=== PATIENT | female | born 1985 | race American Indian/Alaskan Native ===

== ENCOUNTER 2016-06-20 13:44 | Emergency (ER) | payer OTHER ==
[2016-06-20 14:30] VITALS: BP 123/73
--- NOTE | 2016-06-20 15:12 | Emergency Department Report ---
Entered by RAUL GARCÍA, acting as scribe for BERNADETTE SAUER NP. Chief Complaint: Neck Pain/Injury Stated Complaint: NECK PAIN W/SWELLING Time Seen by Provider: 06/20/16 14:16 - HPI History of Present Illness: 30 y/o female presents c/o swelling around the neck that started 3 days ago. Sx include sore throat. Pt notes no sick contacts or injury to the area. She believes swelling is due to her recently going back to work, which she has not done in 8 months. PT states she was told by a chiropractor that she had a dislocated atlas. 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 Due to findings the following was ordered: lab xr ED Disposition for MSE Condition: Stable This documentation as recorded by the scribeRAQUEL RYAN,accurately reflects the service I personally performed and the decisions made by ,BERNADETTE SAUER , BOARD CATCHER.
--- NOTE | 2016-06-20 16:21 | XRay Report ---
AP AND LATERAL CERVICAL SPINE: History: Pain and swelling. The vertebral bodies are well mineralized and normal in alignment and vertebral height with well preserved interspace distances. The visualized portions of the posterior elements are normal. IMPRESSION: Normal study.
--- NOTE | 2016-06-20 16:53 | Emergency Department Report ---
ED Neck Pain/Injury HPI - General Chief Complaint: Neck Pain/Injury Stated Complaint: NECK PAIN W/SWELLING Time Seen by Provider: 06/20/16 14:16 Source: patient Mode of arrival: Ambulatory Limitations: No Limitations - History of Present Illness Initial Comments: PT c/o neck pain x 3 days. PT States the pain started after she returned to work. PT states her neck has been having intermittent swelling x 1 year. MD Complaint: neck pain -: Gradual, days(s) (3 days this episode ), year(s) (1 year of intermittent neck pain ) Severity: constant, similar to prior neck cathryn Severity scale (0 -10): 10 Quality: sharp (stinging ), aching Consistency: constant Worsens With: movement of neck, swallowing (pt c/o sore throat this am ) Associated Symptoms: denies: fever, swollen glands, difficulty swallowing, vomiting Treatments Prior to Arrival: Acetaminophen - Related Data Previous Rx's Medication Instructions Recorded Last Taken Type Ibuprofen [Motrin] 600 mg PO Q8H PRN #15 tablet 06/20/16 Unknown Rx methOCARBAMOL [Robaxin TAB] 500 mg PO Q6H PRN #15 tablet 06/20/16 Unknown Rx methylPREDNISolone [Medrol] 4 mg PO DAILY #1 tab.ds.pk 06/20/16 Unknown Rx Allergies Allergy/AdvReac Type Severity Reaction Status Date / Time No Known Allergies Allergy Verified 11/24/14 23:11 ED Review of Systems ROS: Stated complaint: NECK PAIN W/SWELLING Other details as noted in HPI Comment: All other systems reviewed and negative Constitutional: malaise. denies: fever ENT: throat pain. denies: ear pain Gastrointestinal: denies: abdominal pain, nausea, vomiting Genitourinary: denies: abnormal menses Musculoskeletal: as per HPI. denies: back pain ED Past Medical Hx - Past Medical History Previous Medical History?: Yes Hx Hypertension: No Hx Diabetes: No Hx Deep Vein Thrombosis: No Hx Renal Disease: No Hx Sickle Cell Disease: No Hx Seizures: No Hx Asthma: No Hx HIV: No Additional medical history: panic attack, Cervical radial apathy - Surgical History Past Surgical History?: Yes Additional Surgical History: D & C x 3 - Social History Smoking Status: Never Smoker Substance Use Type: None - Medications Home Medications: Home Medications Medication Instructions Recorded Confirmed Last Taken Type Ibuprofen [Motrin] 600 mg PO Q8H PRN #15 tablet 06/20/16 Unknown Rx methOCARBAMOL [Robaxin TAB] 500 mg PO Q6H PRN #15 tablet 06/20/16 Unknown Rx methylPREDNISolone [Medrol] 4 mg PO DAILY #1 tab.ds.pk 06/20/16 Unknown Rx ED Physical Exam - General Limitations: No Limitations General appearance: alert, in no apparent distress - Head Head exam: Present: atraumatic, normocephalic, normal inspection - Eye Eye exam: Present: normal appearance, PERRL. Absent: conjunctival injection - ENT ENT exam: Present: mucous membranes moist, TM's normal bilaterally, normal external ear exam - Expanded ENT Exam Expanded Throat exam: Positive: tonsillar exudate (questionable possible food substance ) . Negative: tonsillar erythema, tonsillomegaly, R peritonsillar mass, L peritonsillar mass - Neck Neck exam: Present: normal inspection, tenderness, full ROM, other (post c- spine tenderness, divya paraspinal muscle tenderness ). Absent: meningismus, lymphadenopathy - Respiratory Respiratory exam: Present: normal lung sounds bilaterally. Absent: respiratory distress - Cardiovascular Cardiovascular Exam: Present: regular rate, normal rhythm, normal heart sounds - Extremities Exam Extremities exam: Present: normal inspection, full ROM - Back Exam Back exam: Present: normal inspection, full ROM. Absent: tenderness, CVA tenderness (R), CVA tenderness (L) - Neurological Exam Neurological exam: Present: alert, oriented X3 - Psychiatric Psychiatric exam: Present: normal affect, normal mood - Skin Skin exam: Present: warm, dry, intact, normal color ED Course Vital Signs 06/20/16 14:26 Temperature 98.3 F Pulse Rate 84 Respiratory 20 Rate Blood Pressure 123/73 O2 Sat by Pulse 98 Oximetry - Reevaluation(s) Reevaluation #1: 06/20/16 17:07 PT aware of lab and XR results and plan of care. PT has no questions at this time. - Pulse Oximetry Interpretation Digit-Finger Initial Pulse Oximetry Readin Actions Taken: none ED Medical Decision Making - Differential Diagnosis strain, dislocation, strep pharyngitis Critical Care Time: No Critical care attestation.: If time is entered above; I have spent that time in minutes in the direct care of this critically ill patient, excluding procedure time. ED Disposition Clinical Impression: Cervical strain, acute Qualifiers: Encounter type: initial encounter Qualified Code(s): S16.1XXA - Strain of muscle, fascia and tendon at neck level, initial encounter Pharyngitis Qualifiers: Pharyngitis/tonsillitis etiology: unspecified etiology Qualified Code(s): J02.9 - Acute pharyngitis, unspecified Disposition: DISCHARGED TO HOME OR SELFCARE Is pt being admited?: No Does the pt Need Aspirin: No Condition: Stable Instructions: Cervical Spine Strain (ED), Muscle Strain (ED), Pharyngitis (ED) Additional Instructions: No driving or ETOH after Robaxin Prescriptions: Ibuprofen [Motrin] 600 mg PO Q8H PRN #15 tablet PRN Reason: Pain methOCARBAMOL [Robaxin TAB] 500 mg PO Q6H PRN #15 tablet PRN Reason: Muscle Spasm methylPREDNISolone [Medrol] 4 mg PO DAILY #1 tab.ds.pk Referrals: PRIMARY MD YENIFER [Primary Care Provider] - 3-5 Days DOROTHEA MINER MD [Referring] - 3-5 Days [facility] [Outside] - 3-5 Days Forms: Work/School Release Form(ED) Time of Disposition: 16:59
== END 2016-06-20 17:15 | disposition home or self-care (01) ==
LOC: ED 13:44
DX: S16.1XXA Strain of muscle, fascia and tendon at neck level, initial encounter (principal); J02.9 Acute pharyngitis, unspecified; F41.0 Panic disorder [episodic paroxysmal anxiety]
CPT/HCPCS: 72040; 87116; 87430

== ENCOUNTER 2017-08-29 15:59 | Outpatient (CLI) | payer MEDICAID ==
[2017-08-29] MEDS ORDERED: LACTATED RINGERS 500 ML IV ONE (17:13)
[2017-08-29 17:33] VITALS: BP 112/68
[2017-08-29 17:41] LABS: Bacteria,Urine 4+ /HPF (Negative); Bilirubin,Urine NEG (Negative); Blood,Urine NEG (Negative); Color,Urine Yellow (Yellow); Mucus,Urine FEW /HPF; Protein,Urine <15 mg/dL mg/dL (Negative); Urobilinogen,Urine < 2.0 mg/dL (<2.0)
== END 2017-08-29 19:17 | disposition home or self-care (01) ==
LOC: EDSTATUS 16:31 → TRG 16:52
PROVIDERS: ATTEND Obstetrics & Gynecology
DX: O26.892 Other specified pregnancy related conditions, second trimester (principal); R10.2 Pelvic and perineal pain; Z3A.24 24 weeks gestation of pregnancy
CPT/HCPCS: 59025; 81001; 96360; J7120

== ENCOUNTER 2017-09-15 18:09 | Outpatient (CLI) | payer MEDICAID ==
[2017-09-15 19:31] VITALS: BP 120/60
[2017-09-15] MEDS ORDERED: LACTATED RINGERS 1,000 ML IV ONE (19:36)
[2017-09-15 21:22] LABS: Bacteria,Urine 4+ /HPF (Negative); Bilirubin,Urine NEG (Negative); Blood,Urine SM (Negative); Color,Urine Yellow (Yellow); Hyaline Casts,Urine 9 /LPF; Mucus,Urine FEW /HPF; Protein,Urine <15 mg/dL mg/dL (Negative); Sperm,Urine FEW /HPF (NP); Urobilinogen,Urine < 2.0 mg/dL (<2.0)
== END 2017-09-15 21:34 | disposition home or self-care (01) ==
LOC: TRG 18:09
PROVIDERS: ATTEND Obstetrics & Gynecology
DX: O47.02 False labor before 37 completed weeks of gestation, second trimester (principal); Z3A.26 26 weeks gestation of pregnancy
CPT/HCPCS: 59025; 81001

== ENCOUNTER 2019-05-20 21:27 | Emergency (ER) | payer MEDICAID ==
[2019-05-20 21:58] VITALS: BP 135/79
--- NOTE | 2019-05-20 23:37 | Emergency Department Report ---
- General Chief Complaint: Dyspnea/Respdistress Stated Complaint: SOB/SINUS INFECTION SX X 7 DAYS Time Seen by Provider: 05/20/19 22:44 Source: patient Mode of arrival: Ambulatory Limitations: No Limitations - History of Present Illness MD Complaint: cough, sore throat, rhinorrhea, nasal congestion -: Gradual Severity: mild, moderate Quality: dull Associated Symptoms: rhinorrhea, nasal congestion, cough. denies: shortness of breath, abdominal pain, nausea, confusion, right sweats, weight loss - Related Data Previous Rx's Medication Instructions Recorded Last Taken Type Ibuprofen [Motrin] 600 mg PO Q8H PRN #15 tablet 06/20/16 Unknown Rx methOCARBAMOL [Robaxin TAB] 500 mg PO Q6H PRN #15 tablet 06/20/16 Unknown Rx methylPREDNISolone [Medrol] 4 mg PO DAILY #1 tab.ds.pk 06/20/16 Unknown Rx Albuterol INH(or & Nicu Only) 2 puff IH QID PRN #1 inhalation 05/20/19 Unknown Rx [ProAir HFA Inhaler] Sulfamethoxazole/Trimethoprim 1 each PO BID #30 tablet 05/20/19 Unknown Rx [Bactrim DS TAB] guaiFENesin/CODEINE [Robitussin AC] 5 ml PO Q6H PRN #120 ml 05/20/19 Unknown Rx predniSONE [Deltasone] 20 mg PO BID #14 tab 05/20/19 Unknown Rx Allergies Allergy/AdvReac Type Severity Reaction Status Date / Time No Known Allergies Allergy Verified 11/24/14 23:11 ED Review of Systems ROS: Stated complaint: SOB/SINUS INFECTION SX X 7 DAYS Other details as noted in HPI ED Past Medical Hx - Past Medical History Hx Hypertension: No Hx Diabetes: No Hx Deep Vein Thrombosis: No Hx Renal Disease: No Hx Sickle Cell Disease: No Hx Seizures: No Hx Asthma: Yes Hx HIV: No Additional medical history: panic attack, Cervical radial apathy, high cholesterol, fibromylagia - Surgical History Hx Cholecystectomy: Yes Additional Surgical History: D & C x 3 - Social History Smoking Status: Never Smoker Substance Use Type: None - Medications Home Medications: Home Medications Medication Instructions Recorded Confirmed Last Taken Type Ibuprofen [Motrin] 600 mg PO Q8H PRN #15 tablet 06/20/16 Unknown Rx methOCARBAMOL [Robaxin TAB] 500 mg PO Q6H PRN #15 tablet 06/20/16 Unknown Rx methylPREDNISolone [Medrol] 4 mg PO DAILY #1 tab.ds.pk 06/20/16 Unknown Rx Albuterol INH(or & Nicu Only) 2 puff IH QID PRN #1 inhalation 05/20/19 Unknown Rx [ProAir HFA Inhaler] Sulfamethoxazole/Trimethoprim 1 each PO BID #30 tablet 05/20/19 Unknown Rx [Bactrim DS TAB] guaiFENesin/CODEINE [Robitussin AC] 5 ml PO Q6H PRN #120 ml 05/20/19 Unknown Rx predniSONE [Deltasone] 20 mg PO BID #14 tab 05/20/19 Unknown Rx ED Physical Exam - General Limitations: No Limitations ED Course Vital Signs 05/20/19 21:34 Temperature 98.9 F Pulse Rate 100 H Respiratory 20 Rate Blood Pressure 135/79 O2 Sat by Pulse 99 Oximetry Critical care attestation.: If time is entered above; I have spent that time in minutes in the direct care of this critically ill patient, excluding procedure time. ED Disposition Clinical Impression: Bronchitis Disposition: DC-01 TO HOME OR SELFCARE Is pt being admited?: No Does the pt Need Aspirin: No Condition: Stable Instructions: Chronic Bronchitis (ED), Acute Bronchitis (ED) Prescriptions: Sulfamethoxazole/Trimethoprim [Bactrim DS TAB] 1 each PO BID #30 tablet predniSONE [Deltasone] 20 mg PO BID #14 tab Albuterol INH(or & Nicu Only) [ProAir HFA Inhaler] 2 puff IH QID PRN #1 inhalation PRN Reason: Shortness Of Breath guaiFENesin/CODEINE [Robitussin AC] 5 ml PO Q6H PRN #120 ml PRN Reason: Cough Referrals: PRIMARY CARE, [Primary Care Provider] - 3-5 Days [facility] [Provider Group] - 3-5 Days
== END 2019-05-20 23:50 | disposition home or self-care (01) ==
LOC: ED 21:27
DX: J40 Bronchitis, not specified as acute or chronic (principal); J45.909 Unspecified asthma, uncomplicated; E78.00 Pure hypercholesterolemia, unspecified; Z90.49 Acquired absence of other specified parts of digestive tract; Z79.899 Other long term (current) drug therapy
CPT/HCPCS: 99282

== ENCOUNTER 2019-07-09 19:25 | Emergency (ER) | payer MEDICAID ==
[2019-07-09 19:41] VITALS: BP 117/67
--- NOTE | 2019-07-09 21:46 | Emergency Department Report ---
ED ENT HPI - General Chief complaint: Dental/Oral Stated complaint: SWELLING TONSILS AND ITCHING/CHEST PAIN Time Seen by Provider: 07/09/19 20:44 Source: patient Mode of arrival: Ambulatory Limitations: No Limitations - History of Present Illness MD complaint: sore throat -: Gradual, days(s) (Past few days) Severity: mild, moderate Consistency: constant Improves with: none Worsens with: swallowing, eating Associated Symptoms: pain with swallowing, sore throat. denies: gum swelling, tinnitus, discharge from ear, rhinorrhea - Related Data Previous Rx's Medication Instructions Recorded Last Taken Type Ibuprofen [Motrin] 600 mg PO Q8H PRN #15 tablet 06/20/16 Unknown Rx methOCARBAMOL [Robaxin TAB] 500 mg PO Q6H PRN #15 tablet 06/20/16 Unknown Rx methylPREDNISolone [Medrol] 4 mg PO DAILY #1 tab.ds.pk 06/20/16 Unknown Rx Albuterol INH(or & Nicu Only) 2 puff IH QID PRN #1 inhalation 05/20/19 Unknown Rx [ProAir HFA Inhaler] Sulfamethoxazole/Trimethoprim 1 each PO BID #30 tablet 05/20/19 Unknown Rx [Bactrim DS TAB] guaiFENesin/CODEINE [Robitussin AC] 5 ml PO Q6H PRN #120 ml 05/20/19 Unknown Rx predniSONE [Deltasone] 20 mg PO BID #14 tab 05/20/19 Unknown Rx Clindamycin [Clindamycin CAP] 300 mg PO Q8H #21 cap 07/09/19 Unknown Rx Allergies Allergy/AdvReac Type Severity Reaction Status Date / Time amoxicillin [From Augmentin] Allergy Swelling Verified 07/09/19 19:42 clavulanic acid Allergy Swelling Verified 07/09/19 19:42 [From Augmentin] ED Dental HPI - General Chief complaint: Dental/Oral Stated complaint: SWELLING TONSILS AND ITCHING/CHEST PAIN Time Seen by Provider: 07/09/19 20:44 Source: patient Mode of arrival: Ambulatory Limitations: No Limitations - Related Data Previous Rx's Medication Instructions Recorded Last Taken Type Ibuprofen [Motrin] 600 mg PO Q8H PRN #15 tablet 06/20/16 Unknown Rx methOCARBAMOL [Robaxin TAB] 500 mg PO Q6H PRN #15 tablet 06/20/16 Unknown Rx methylPREDNISolone [Medrol] 4 mg PO DAILY #1 tab.ds.pk 06/20/16 Unknown Rx Albuterol INH(or & Nicu Only) 2 puff IH QID PRN #1 inhalation 05/20/19 Unknown Rx [ProAir HFA Inhaler] Sulfamethoxazole/Trimethoprim 1 each PO BID #30 tablet 05/20/19 Unknown Rx [Bactrim DS TAB] guaiFENesin/CODEINE [Robitussin AC] 5 ml PO Q6H PRN #120 ml 05/20/19 Unknown Rx predniSONE [Deltasone] 20 mg PO BID #14 tab 05/20/19 Unknown Rx Clindamycin [Clindamycin CAP] 300 mg PO Q8H #21 cap 07/09/19 Unknown Rx Allergies Allergy/AdvReac Type Severity Reaction Status Date / Time amoxicillin [From Augmentin] Allergy Swelling Verified 07/09/19 19:42 clavulanic acid Allergy Swelling Verified 07/09/19 19:42 [From Augmentin] ED Review of Systems ROS: Stated complaint: SWELLING TONSILS AND ITCHING/CHEST PAIN Other details as noted in HPI Comment: All other systems reviewed and negative ED Past Medical Hx - Past Medical History Hx Hypertension: No Hx Diabetes: No Hx Deep Vein Thrombosis: No Hx Renal Disease: No Hx Sickle Cell Disease: No Hx Seizures: No Hx Asthma: Yes Hx HIV: No Additional medical history: panic attack, Cervical radial apathy, high cholesterol, fibromylagia - Surgical History Hx Cholecystectomy: Yes Additional Surgical History: D & C x 3 - Social History Smoking Status: Never Smoker Substance Use Type: None - Medications Home Medications: Home Medications Medication Instructions Recorded Confirmed Last Taken Type Ibuprofen [Motrin] 600 mg PO Q8H PRN #15 tablet 06/20/16 Unknown Rx methOCARBAMOL [Robaxin TAB] 500 mg PO Q6H PRN #15 tablet 06/20/16 Unknown Rx methylPREDNISolone [Medrol] 4 mg PO DAILY #1 tab.ds.pk 06/20/16 Unknown Rx Albuterol INH(or & Nicu Only) 2 puff IH QID PRN #1 inhalation 05/20/19 Unknown Rx [ProAir HFA Inhaler] Sulfamethoxazole/Trimethoprim 1 each PO BID #30 tablet 05/20/19 Unknown Rx [Bactrim DS TAB] guaiFENesin/CODEINE [Robitussin AC] 5 ml PO Q6H PRN #120 ml 05/20/19 Unknown Rx predniSONE [Deltasone] 20 mg PO BID #14 tab 05/20/19 Unknown Rx Clindamycin [Clindamycin CAP] 300 mg PO Q8H #21 cap 07/09/19 Unknown Rx ED Physical Exam - General Limitations: No Limitations General appearance: alert, in no apparent distress - Head Head exam: Present: atraumatic, normocephalic - Eye Eye exam: Present: normal appearance, PERRL, EOMI Pupils: Present: normal accommodation - ENT ENT exam: Present: mucous membranes moist - Neck Neck exam: Present: normal inspection - Respiratory Respiratory exam: Present: normal lung sounds bilaterally. Absent: respiratory distress - Cardiovascular Cardiovascular Exam: Present: regular rate, normal rhythm. Absent: systolic murmur, diastolic murmur, rubs, gallop - GI/Abdominal GI/Abdominal exam: Present: soft, normal bowel sounds - Extremities Exam Extremities exam: Present: normal inspection - Back Exam Back exam: Present: normal inspection - Neurological Exam Neurological exam: Present: alert, oriented X3 - Psychiatric Psychiatric exam: Present: normal affect, normal mood - Skin Skin exam: Present: warm, dry, intact, normal color. Absent: rash ED Course Vital Signs 07/09/19 19:38 Temperature 97.8 F Pulse Rate 58 L Respiratory 18 Rate Blood Pressure 117/67 O2 Sat by Pulse 100 Oximetry Critical care attestation.: If time is entered above; I have spent that time in minutes in the direct care of this critically ill patient, excluding procedure time. ED Disposition Disposition: DC- TO HOME OR SELFCARE Condition: Stable Instructions: Pharyngitis (ED) Prescriptions: Clindamycin [Clindamycin CAP] 300 mg PO Q8H #21 cap Referrals: PRIMARY CARE, [Primary Care Provider] - 3-5 Days [facility] [Provider Group] - 3-5 Days
== END 2019-07-09 21:27 | disposition home or self-care (01) ==
LOC: ED 19:25
DX: R07.9 Chest pain, unspecified (principal); J03.90 Acute tonsillitis, unspecified; L29.9 Pruritus, unspecified; J45.909 Unspecified asthma, uncomplicated; E78.00 Pure hypercholesterolemia, unspecified; Z90.49 Acquired absence of other specified parts of digestive tract; Z98.890 Other specified postprocedural states; Z88.8 Allergy status to other drugs, medicaments and biological substances; Z79.899 Other long term (current) drug therapy
CPT/HCPCS: 99281

== ENCOUNTER 2020-04-01 21:06 | Emergency (ER) | payer MEDICAID ==
[2020-04-01] MEDS ORDERED: ASPIRIN 325 MG TAB PO ONE (22:58)
[2020-04-01 23:16] LABS: Basophils % (Auto) 0.4 % (0.0-1.8); Eosinophils # (Auto) 0.1 K/mm3 (0.0-0.4); Eosinophils % (Auto) 0.7 % (0.0-4.3); Hematocrit 38.8 % (30.3-42.9); Hemoglobin 13.6 gm/dl (10.1-14.3); Lymphocytes # (Auto) 3.4 K/mm3 (1.2-5.4); Mean Corpuscular HGB Conc 35 % (30-34); Mean Corpuscular Volume 90 fl (79-97); Monocytes # (Auto) 0.7 K/mm3 (0.0-0.8); Monocytes % (Auto) 7.9 % (0.0-7.3); Platelet Count 261 K/mm3 (140-440); Red Blood Count 4.32 M/mm3 (3.65-5.03); Red Cell Distribution Width 12.8 % (13.2-15.2)
[2020-04-01 23:38] LABS: BUN/Creatinine Ratio 14; Blood Urea Nitrogen 11 mg/dL (7-17); Calcium 9.5 mg/dL (8.4-10.2); Hemolysis Index 9
--- NOTE | 2020-04-01 23:55 | XRay Report ---
CHEST 1 VIEW 04/01/2020 10:41 PM INDICATION / CLINICAL INFORMATION: Chest Pain. COMPARISON: 11/02/2015 FINDINGS: SUPPORT DEVICES: None. HEART / MEDIASTINUM: No significant abnormality. LUNGS / PLEURA: No significant pulmonary or pleural abnormality. No pneumothorax. ADDITIONAL FINDINGS: No significant additional findings. IMPRESSION: 1. No acute findings. Signer Name: Kareem Kendall MD Signed: 04/01/2020 11:51 PM Workstation Name: [id number]
--- NOTE | 2020-04-02 00:04 | Emergency Department Report ---
ED Chest Pain HPI - General Chief Complaint: Chest Pain Stated Complaint: LEFT SIDE RIB/CHEST PAIN PUI?: No Time Seen by Provider: 04/01/20 23:32 Source: patient Mode of arrival: Ambulatory Limitations: No Limitations - History of Present Illness Initial Comments: Patient is a 34-year-old female that presents emergency room with complaints of chest pain x3 days. Patient states the chest pain is on both sides of her sternum and is radiating down to the bottom of her left breast. Patient states that the pain is ongoing. Patient states the pain is the same for the last 3 days. Patient states the pain is a 10 out of 10. Patient states the pain is worse with movement and palpation. Patient states the pain is better with rest. Patient states that the pain is also worse with deep breath. Patient denies shortness of breath. Patient denies fever and chills. Patient denies cough. Patient denies trauma. Patient denies fall. Patient denies new work-up. Patient denies recent travel. Patient denies recent international travel. Patient denies exposure to the novel coronavirus. Patient denies sick contacts. Patient denies fever and chills. Patient denies cough. Patient denies diarrhea. Patient denies coming in contact with anybody with symptoms of the novel coronavirus. MD Complaint: chest pain - Related Data Previous Rx's Medication Instructions Recorded Last Taken Type Ibuprofen [Motrin] 600 mg PO Q8H PRN #15 tablet 06/20/16 Unknown Rx methOCARBAMOL [Robaxin TAB] 500 mg PO Q6H PRN #15 tablet 06/20/16 Unknown Rx methylPREDNISolone [Medrol] 4 mg PO DAILY #1 tab.ds.pk 06/20/16 Unknown Rx Albuterol Mdi (or & Nicu Only) 2 puff IH QID PRN #1 inhalation 05/20/19 Unknown Rx [ProAir HFA Inhaler] Sulfamethoxazole/Trimethoprim 1 each PO BID #30 tablet 05/20/19 Unknown Rx [Bactrim DS TAB] guaiFENesin/CODEINE [Robitussin AC] 5 ml PO Q6H PRN #120 ml 05/20/19 Unknown Rx predniSONE [Deltasone] 20 mg PO BID #14 tab 05/20/19 Unknown Rx Clindamycin [Clindamycin CAP] 300 mg PO Q8H #21 cap 07/09/19 Unknown Rx methylPREDNISolone [Medrol 4MG 4 mg PO DAILY 6 Days #1 tab.ds.pk 04/02/20 Unknown Rx DOSEPAK (21 tabs)] Allergies Allergy/AdvReac Type Severity Reaction Status Date / Time amoxicillin [From Augmentin] Allergy Swelling Verified 07/09/19 19:42 clavulanic acid Allergy Swelling Verified 07/09/19 19:42 [From Augmentin] Heart Score - HEART Score History: Slightly suspicious EKG: Normal Age: < 45 Risk factors: No known risk factors Troponin: < normal limit HEART Score: 0 ED Review of Systems ROS: Stated complaint: LEFT SIDE RIB/CHEST PAIN Other details as noted in HPI Constitutional: denies: chills, fever Eyes: denies: eye pain, eye discharge, vision change ENT: denies: ear pain, throat pain Respiratory: denies: cough, shortness of breath, wheezing Cardiovascular: chest pain. denies: palpitations Endocrine: no symptoms reported Gastrointestinal: denies: abdominal pain, nausea, diarrhea Genitourinary: denies: urgency, dysuria, discharge Musculoskeletal: denies: back pain, joint swelling, arthralgia Skin: denies: rash, lesions Neurological: denies: headache, weakness, paresthesias Psychiatric: denies: anxiety, depression Hematological/Lymphatic: denies: easy bleeding, easy bruising ED Past Medical Hx - Past Medical History Previous Medical History?: Yes Hx Hypertension: No Hx Diabetes: No Hx Deep Vein Thrombosis: No Hx Renal Disease: No Hx Sickle Cell Disease: No Hx Seizures: No Hx Asthma: Yes Hx HIV: No Additional medical history: panic attack, Cervical radial apathy, high sukumar sterol, fibromylagia - Surgical History Past Surgical History?: Yes Hx Cholecystectomy: Yes Additional Surgical History: D & C x 3 - Family History Family history: no significant - Social History Smoking Status: Never Smoker Substance Use Type: None - Medications Home Medications: Home Medications Medication Instructions Recorded Confirmed Last Taken Type Ibuprofen [Motrin] 600 mg PO Q8H PRN #15 tablet 06/20/16 Unknown Rx methOCARBAMOL [Robaxin TAB] 500 mg PO Q6H PRN #15 tablet 06/20/16 Unknown Rx methylPREDNISolone [Medrol] 4 mg PO DAILY #1 tab.ds.pk 06/20/16 Unknown Rx Albuterol Mdi (or & Nicu Only) 2 puff IH QID PRN #1 inhalation 05/20/19 Unknown Rx [ProAir HFA Inhaler] Sulfamethoxazole/Trimethoprim 1 each PO BID #30 tablet 05/20/19 Unknown Rx [Bactrim DS TAB] guaiFENesin/CODEINE [Robitussin AC] 5 ml PO Q6H PRN #120 ml 05/20/19 Unknown Rx predniSONE [Deltasone] 20 mg PO BID #14 tab 05/20/19 Unknown Rx Clindamycin [Clindamycin CAP] 300 mg PO Q8H #21 cap 07/09/19 Unknown Rx methylPREDNISolone [Medrol 4MG 4 mg PO DAILY 6 Days #1 tab.ds.pk 04/02/20 Unknown Rx DOSEPAK (21 tabs)] ED Physical Exam - General Limitations: No Limitations General appearance: alert, in no apparent distress - Head Head exam: Present: atraumatic, normocephalic - Eye Eye exam: Present: normal appearance - ENT ENT exam: Present: mucous membranes moist - Neck Neck exam: Present: normal inspection - Respiratory Respiratory exam: Present: normal lung sounds bilaterally, chest wall tenderness (Tenderness over the sternum and left lower ribs reproduces symptoms. Patient has tenderness to palpation of the chest wall.), other (Nurse, isaías in the room the entire exam. ). Absent: respiratory distress - Cardiovascular Cardiovascular Exam: Present: regular rate, normal rhythm. Absent: systolic murmur, diastolic murmur, rubs, gallop - GI/Abdominal GI/Abdominal exam: Present: soft, normal bowel sounds. Absent: distended, tenderness, guarding - Rectal Rectal exam: Present: deferred - Extremities Exam Extremities exam: Present: normal inspection - Back Exam Back exam: Present: normal inspection - Neurological Exam Neurological exam: Present: alert, oriented X3 - Psychiatric Psychiatric exam: Present: normal affect, normal mood - Skin Skin exam: Present: warm, dry, intact, normal color. Absent: rash ED Course Vital Signs 04/01/20 04/02/20 04/02/20 22:58 00:05 00:42 Temperature 98.9 F Pulse Rate 83 61 63 Respiratory 18 23 15 Rate Blood Pressure 112/70 Blood Pressure 113/49 112/61 [Right] O2 Sat by Pulse 100 100 100 Oximetry - Reevaluation(s) Reevaluation #1: I discussed all results and clinical findings with patient. I discussed plan of care with patient. Patient agrees with plan of care. Patient is stable for discharge. Patient will be discharged home. Patient given discharge instructions. Patient voiced understanding of discharge instructions. 04/02/20 00:19 LIZANDRO score - Lizandro Score Age > 65: (0) No Aspirin use within the Past 7 Days: (0) No 3 or more CAD Risk Factors: (0) No 2 or more Angina events in past 24 hrs: (1) Yes Known CAD with more than 50% Stenosis: (0) No Elevated Cardiac Markers: (0) No ST Deviation Greater than 0.5mm: (0) No LIZANDRO Score: 1 ED Medical Decision Making - Lab Data Result diagrams: 04/01/20 23:01 04/01/20 23:01 - EKG Data -: EKG Interpreted by Me EKG shows normal: sinus rhythm, axis, intervals, QRS complexes, ST-T waves Rate: normal - Radiology Data Radiology results: report reviewed CHEST 1 VIEW 04/01/2020 10:41 PM INDICATION / CLINICAL INFORMATION: Chest Pain. COMPARISON: 11/02/2015 FINDINGS: SUPPORT DEVICES: None. HEART / MEDIASTINUM: No significant abnormality. LUNGS / PLEURA: No significant pulmonary or pleural abnormality. No pneumothorax. ADDITIONAL FINDINGS: No significant additional findings. IMPRESSION: 1. No acute findings. - Medical Decision Making Patient is a 34-year-old female that presents emergency room for chest pain x3 days. Patient on exam has chest wall tenderness and palpation of the chest wall reproduces the patient's symptoms. Patient tenderness is sternal and over the ribs. Patient has greater tenderness consistent with costochondritis. Patient had labs done which were essentially unremarkable. Patient had a chest x-ray which was negative for acute finding. Patient had EKG which shows sinus arrhythmia and no ST changes. Patient is stable for discharge. Patient will be discharged home with medications. Patient will be given a steroid pack. - Differential Diagnosis Costochondritis, chest wall pain, chest pain, GERD, Critical care attestation.: If time is entered above; I have spent that time in minutes in the direct care of this critically ill patient, excluding procedure time. ED Disposition Clinical Impression: Costochondritis, acute, Chest wall pain Chest pain Qualifiers: Chest pain type: unspecified Qualified Code(s): R07.9 - Chest pain, unspecified Disposition: TO HOME OR SELFCARE Is pt being admited?: No Does the pt Need Aspirin: No Condition: Stable Instructions: Costochondritis, [id number], Chest Pain (ED) Additional Instructions: Patient to follow-up with primary care in 2 to 3 days. Patient to follow-up with orthopedist in 2 to 3 days. Patient to rest. Patient to increase water. Patient to avoid strenuous exercise or heavy lifting until cleared by orthopedist. Patient to take Tylenol or ibuprofen as needed for pain. Patient to take meds as directed. Patient to return to the ER if condition worsens, changes or new symptoms arise. Prescriptions: methylPREDNISolone [Medrol 4MG DOSEPAK (21 tabs)] 4 mg PO DAILY 6 Days #1 tab.ds.pk Referrals: JAMILA MENENDEZ NP-C [Primary Care Provider] - 2-3 Days Time of Disposition: 00:19
[2020-04-02 00:43] VITALS: BP 112/61
== END 2020-04-02 00:43 | disposition home or self-care (01) ==
LOC: ED 21:06
DX: M94.0 Chondrocostal junction syndrome [Tietze] (principal); R07.89 Other chest pain; J45.909 Unspecified asthma, uncomplicated; Z90.49 Acquired absence of other specified parts of digestive tract; Z98.890 Other specified postprocedural states; Z79.1 Long term (current) use of non-steroidal anti-inflammatories (NSAID); Z79.899 Other long term (current) drug therapy; Z88.2 Allergy status to sulfonamides; Z88.8 Allergy status to other drugs, medicaments and biological substances
CPT/HCPCS: 36415; 71045; 80048; 84484; 84703; 85025; 93005

== ENCOUNTER 2021-07-02 20:57 | Emergency (ER) | payer MEDICAID ==
[2021-07-03] MEDS ORDERED: METOCLOPRAMIDE 10 MG/2 ML INJ IV ONE (04:03)
[2021-07-03] MEDS ORDERED: SODIUM CHLORIDE 0.9% 1000 ML 1,000 ML IV ONE (04:03)
[2021-07-03] MEDS ORDERED: diphenhydrAMINE 50 MG/ML VIAL IV ONE (04:03)
--- NOTE | 2021-07-03 04:26 | Emergency Department Report ---
ED HPI - General Chief complaint: Nausea/Vomiting/Diarrhea Stated complaint: 7WKS PREG/EMESIS/ABD PAIN Time Seen by Provider: 07/03/21 03:23 Source: patient Mode of arrival: Ambulatory Limitations: No Limitations - History of Present Illness Initial comments: 35-year-old -[place] female with multiple previous pregnancies presents emergency department reporting being about 7 weeks after discovering positive test a few days ago. Since discovering she is having issues with nausea and vomiting which she states he is accustomed to having with her pregnancies. Her morning sickness typically last throughout the entire course of her and required multiple trips to the hospital for dehydration for which she presents today. Reports no hemoptysis no hematemesis hematochezia, no fever, chills, sweats. -: Gradual Radiation: none Severity: mild Improves with: none Worsens with: none Associated symptoms: nausea/vomiting Vaginal bleeding: none :: Yes Number of weeks : 7 - Related Data Previous Rx's Medication Instructions Recorded Last Taken Type Ibuprofen [Motrin] 600 mg PO Q8H PRN #15 tablet 06/20/16 Unknown Rx methOCARBAMOL [Robaxin TAB] 500 mg PO Q6H PRN #15 tablet 06/20/16 Unknown Rx methylPREDNISolone [Medrol] 4 mg PO DAILY #1 tab.ds.pk 06/20/16 Unknown Rx Albuterol Mdi (or & Nicu Only) 2 puff IH QID PRN #1 inhalation 05/20/19 Unknown Rx [ProAir HFA Inhaler] Sulfamethoxazole/Trimethoprim 1 each PO BID #30 tablet 05/20/19 Unknown Rx [Bactrim DS TAB] guaiFENesin/CODEINE [Robitussin AC] 5 ml PO Q6H PRN #120 ml 05/20/19 Unknown Rx predniSONE [Deltasone] 20 mg PO BID #14 tab 05/20/19 Unknown Rx Clindamycin [Clindamycin CAP] 300 mg PO Q8H #21 cap 07/09/19 Unknown Rx methylPREDNISolone [Medrol 4MG 4 mg PO DAILY 6 Days #1 tab.ds.pk 04/02/20 Unknown Rx DOSEPAK (21 tabs)] Doxylamine Succinate/Vit B6 1 each PO BID #30 07/03/21 Unknown Rx [Dicaarons Dr 10-10 mg Tablet] Allergies Allergy/AdvReac Type Severity Reaction Status Date / Time amoxicillin [From Augmentin] Allergy Swelling Verified 07/02/21 21:55 clavulanic acid Allergy Swelling Verified 07/02/21 21:55 [From Augmentin] fenofibrate [From Tricor] Allergy Hives Verified 07/02/21 21:56 ED Review of Systems ROS: Stated complaint: 7WKS PREG/EMESIS/ABD PAIN Other details as noted in HPI Comment: All other systems reviewed and negative ED Past Medical Hx - Past Medical History Previous Medical History?: Yes Hx Hypertension: No Hx Diabetes: No Hx Deep Vein Thrombosis: No Hx Renal Disease: No Hx Sickle Cell Disease: No Hx Seizures: No Hx Asthma: Yes Hx HIV: No Additional medical history: panic attack, Cervical radial apathy, high cholesterol, fibromylagia, hyperemesis - Surgical History Past Surgical History?: Yes Hx Cholecystectomy: Yes Additional Surgical History: D & C x 3 - Social History Smoking Status: Never Smoker Substance Use Type: None - Medications Home Medications: Home Medications Medication Instructions Recorded Confirmed Last Taken Type Ibuprofen [Motrin] 600 mg PO Q8H PRN #15 tablet 06/20/16 Unknown Rx methOCARBAMOL [Robaxin TAB] 500 mg PO Q6H PRN #15 tablet 06/20/16 Unknown Rx methylPREDNISolone [Medrol] 4 mg PO DAILY #1 tab.ds.pk 06/20/16 Unknown Rx Albuterol Mdi (or & Nicu Only) 2 puff IH QID PRN #1 inhalation 05/20/19 Unknown Rx [ProAir HFA Inhaler] Sulfamethoxazole/Trimethoprim 1 each PO BID #30 tablet 05/20/19 Unknown Rx [Bactrim DS TAB] guaiFENesin/CODEINE [Robitussin AC] 5 ml PO Q6H PRN #120 ml 05/20/19 Unknown Rx predniSONE [Deltasone] 20 mg PO BID #14 tab 05/20/19 Unknown Rx Clindamycin [Clindamycin CAP] 300 mg PO Q8H #21 cap 07/09/19 Unknown Rx methylPREDNISolone [Medrol 4MG 4 mg PO DAILY 6 Days #1 tab.ds.pk 04/02/20 Unknown Rx DOSEPAK (21 tabs)] Doxylamine Succinate/Vit B6 1 each PO BID #30 07/03/21 Unknown Rx [Diclegis Dr 10-10 mg Tablet] ED Physical Exam - General Limitations: No Limitations General appearance: alert, in no apparent distress - Head Head exam: Present: atraumatic, normocephalic - Eye Eye exam: Present: normal appearance - ENT ENT exam: Present: mucous membranes moist - Neck Neck exam: Present: normal inspection - Respiratory Respiratory exam: Present: normal lung sounds bilaterally. Absent: respiratory distress - Cardiovascular Cardiovascular Exam: Present: regular rate, normal rhythm. Absent: systolic murmur, diastolic murmur, rubs, gallop - GI/Abdominal GI/Abdominal exam: Present: soft, normal bowel sounds - Extremities Exam Extremities exam: Present: normal inspection - Back Exam Back exam: Present: normal inspection - Neurological Exam Neurological exam: Present: alert, oriented X3 - Psychiatric Psychiatric exam: Present: normal affect, normal mood - Skin Skin exam: Present: warm, dry, intact, normal color. Absent: rash ED Course Vital Signs 07/02/21 21:51 Temperature 98.5 F Pulse Rate 65 Respiratory 20 Rate Blood Pressure 117/64 O2 Sat by Pulse 100 Oximetry ED Medical Decision Making - Medical Decision Making 35-year-old female presents emergency department complaining of nausea and vomiting without diarrhea. The patient is overall well-appearing and suspected to have hyperemesis gravidarum. Given the history of examination he does not appear to be an emergency cause for the symptoms such as small bowel obstruction, coronary syndrome, bowel ischemia, DKA, pancreatitis, appendicitis, acute abdomen no emergent problem. Patient was treated with Reglan, Benadryl, fluids as well as vitamin D6. After treatment patient is feeling much better tolerating p.o. fluids shows no signs of dehydration Critical care attestation.: If time is entered above; I have spent that time in minutes in the direct care of this critically ill patient, excluding procedure time. ED Disposition Clinical Impression: Hyperemesis gravidarum Disposition: HOME / SELF CARE / HOMELESS Is pt being admited?: No Does the pt Need Aspirin: No Condition: Stable Instructions: Hyperemesis Gravidarum Prescriptions: Doxylamine Succinate/Vit B6 [Diclegis Dr 10-10 mg Tablet] 1 each PO BID #30 Referrals: JAMILA MENENDEZ NP-C [Primary Care Provider] - 3-5 Days [facility] [Provider Group] - 3-5 Days [facility] [Provider Group] - 3-5 Days [facility] [Provider Group] - 3-5 Days
[2021-07-03 04:31] LABS: Basophils % (Auto) 0.4 % (0.0-1.8); Eosinophils % (Auto) 0.4 % (0.0-4.3); Hematocrit 38.9 % (30.3-42.9); Lymphocytes # (Auto) 2.9 K/mm3 (1.2-5.4); Lymphocytes % (Auto) 27.5 % (13.4-35.0); Mean Corpuscular HGB Conc 34 % (30-34); Mean Corpuscular Volume 91 fl (79-97); Monocytes # (Auto) 0.8 K/mm3 (0.0-0.8); Monocytes % (Auto) 7.6 % (0.0-7.3); Platelet Count 229 K/mm3 (140-440); Red Blood Count 4.26 M/mm3 (3.65-5.03); Red Cell Distribution Width 12.9 % (13.2-15.2)
[2021-07-03 04:49] LABS: Blood Urea Nitrogen 7 mg/dL (7-17); Calcium 9.5 mg/dL (8.4-10.2); Hemolysis Index 5
[2021-07-03 04:52] LABS: BUN/Creatinine Ratio 10
[2021-07-03 05:50] VITALS: BP 122/67
== END 2021-07-03 05:50 | disposition home or self-care (01) ==
LOC: ED 20:57
DX: O21.0 Mild hyperemesis gravidarum (principal); Z3A.01 Less than 8 weeks gestation of pregnancy; J45.909 Unspecified asthma, uncomplicated; Z98.890 Other specified postprocedural states; Z91.09 Other allergy status, other than to drugs and biological substances
CPT/HCPCS: 36415; 80048; 84702; 85025; 96361; 96374; 96375; 99283; J1200; J2765; J7030

== ENCOUNTER 2021-11-12 20:25 | Outpatient (CLI) | payer MEDICAID ==
[2021-11-12 21:13] VITALS: BP 112/58
[2021-11-12] MEDS ORDERED: ACETAMINOPHEN 500 MG TAB PO ONE (21:57)
[2021-11-12 23:04] LABS: Amorphous Crystals,Urine Few; Bacteria,Urine 2+ /HPF (Negative); Calcium Oxalate Crystals,Urine 2+; Mucus,Urine FEW /HPF
[2021-11-12 23:14] LABS: Color,Urine Yellow (Yellow)
== END 2021-11-13 00:45 | disposition home or self-care (01) ==
LOC: TRG 20:25 → APU 20:27 → TRG 11-13 00:45
PROVIDERS: ATTEND Obstetrics & Gynecology
DX: O26.892 Other specified pregnancy related conditions, second trimester (principal); R10.9 Unspecified abdominal pain; R20.0 Anesthesia of skin; Z3A.26 26 weeks gestation of pregnancy
CPT/HCPCS: 81001